=== PATIENT | male | born 2000 | race Caucasian/White ===

== ENCOUNTER 2025-07-14 19:39 | Emergency (ER) | payer BC, SELFPAY ==
[2025-07-14 19:42] VITALS: BP 152/76
--- NOTE | 2025-07-14 20:55 | ED.GENMED ---
History of Present Illness
General
Chief Complaint: Musculo-Skeletal Complaint
Time Seen by Provider: 07/14/25 20:51
History of Present Illness
History of Present Illness:
Carlos is a 25-year-old male who was wrestles at [employer] and was in a match when he felt his ankle twist and developed severe pain in the ankle. Ankle immediately swelled. Complains of pain in the ankle. No other complaints of pain. Appears to be
an isolated injury. Walking with crutches on arrival.
Phy Exam
General Physical Exam
General Presentation: well appearing and no apparent distress
General Skin: warm and dry
General Habitus: normal
General Mental: alert
General Hydration: appears well hydrated
ENT Exam
ENT Exam: EOMI, pharynx normal, neck supple and normocephalic
Eye Exam
Eye Exam: PERRL, cornea clear and conjunctiva normal
Cardiovascular Exam
Cardiovascular Exam: regular rate/rhythm, no edema, no murmur and normal peripheral pulses
Pulmonary Exam
Pulmonary Exam: lungs clear, no respiratory distress, no rales, no crackles, no rhonchi, no stridor, no wheezing and no cough
Gastrointestinal Exam
Gastrointestinal Exam: normal bowel sounds, non tender, soft, no organomegaly, no pulsatile mass and non distended
Neurological Exam
Neurological Exam: alert, oriented x3, no motor deficits and speech normal
Musculoskeletal Exam
Musculoskeletal Exam: full ROM, no edema, joint swelling and other (Tenderness over right medial and lateral malleolus)
Skin Exam
Skin Exam: normal color, warm/dry, no rash and no petechia
Psychiatric Exam
Psychiatric Exam: normal mood/affect
Course
Orders/Labs/Results
Orders:
Orders
07/14/25 19:41
CR Ankle - Right Min 3 Views * Urgent
Comment:
Reason For Exam: Injury
Vital Signs
Initial and Last Documented VS:
Initial Vital Signs
Temp Pulse Resp BP Pulse Ox
36.8 C 103 16 152/76 98
07/14/25 19:42 07/14/25 19:42 07/14/25 19:42 07/14/25 19:42 07/14/25 19:42
Last Documented Vital Signs
Temp Pulse Resp BP Pulse Ox
36.8 C 103 16 152/76 98
07/14/25 19:42 07/14/25 19:42 07/14/25 19:42 07/14/25 19:42 07/14/25 20:58
Procedures
Splinting/Sling Placement
Right Lower Ankle:
Pre-splint extermity exam: neurovascular intact
Type of splint: sugar-tong and dorsal/volar
Splint material: fiberglass
Normal distal neurovascular exam?: Yes
MDM/Problems Addressed
Differential Diagnosis Includes:
X-rays obtained show 4 mm avulsion fracture at the medial malleolus. Will place patient in sugar-tong and posterior leg splint. He he is actually scheduled follow-up with his orthopedic surgeon on Thursday and will call to confirm that they are
comfortable to manage this injury as well. If not he will schedule appointment with orthopedics. Instructed to maintain nonweightbearing. Offered him pain medication but he is declining at this time.
*Pulse Oximetry
SaO2: 98
Oxygen Mode of Delivery: Room air
Patient hypoxic: no
*Critical Care Note
Total Time (30-74mins, 75-104mins- exclusive of procedures): Not Applicable
ED Attending Note
-
Portions of this chart may have been created with voice recognition software.� Occasional wrong word or��sound alike� substitutions may have occurred due to the inherent limitations of voice recognition software.
Discharge Plan
Departure
Patient Disposition: Home (Routine Discharge)
Date of Disposition: 07/14/25
Time of Disposition: 21:23
Patient with high blood pressure during this ER visit?: No
Discharge Problem:
Avulsion fracture of medial malleolus
Instructions: Ankle Fracture (DC)
Referrals:
Pauly Simpson DO [Family Provider, Family Practice]
Activity Restrictions/Additional Instructions:
You should follow-up with orthopedic surgery regarding your ankle fracture. You can take Tylenol or Motrin for pain. Continue to elevate your foot. Do not bear weight on your right leg.
Interventions
Interventions:
*General Assessment Last Done: 07/14/25 21:14
*Neglect/Abuse Screening Last Done: 07/14/25 21:14
[facility] Risk Assessment Tool Last Done: 07/14/25 21:22
*Risk Screen - Suicide (C-SSRS) Last Done: 07/14/25 21:14
ED-Musculoskeletal Assessment Last Done: 07/14/25 21:14
Discharge Date and Time
Print Language: MONGOLIAN
== END 2025-07-14 21:35 | disposition home or self-care (01) ==
LOC: EMR 19:39
PROVIDERS: EMERGENCY PHYSICIAN Student in an Organized Health Care Education/Training Program; FAMILY PHYSICIAN Family Medicine
DX: S82.51XA Displaced fracture of medial malleolus of right tibia, initial encounter for closed fracture (principal); X50.1XXA Overexertion from prolonged static or awkward postures, initial encounter; Y93.72 Activity, wrestling
CPT/HCPCS: 29515; 99283; 73610